=== PATIENT | male | born 2000 | race Caucasian/White ===

== ENCOUNTER 2020-07-17 22:47 | Emergency (ER) | payer BC ==
[~2020-07-17] VITALS: Ht 177.8 cm; Wt 72.6 kg
[2020-07-17 22:52] VITALS: BP 120/77
--- NOTE | 2020-07-17 22:52 | NUR ---
TO BED AMBULATORY
--- NOTE | 2020-07-17 23:42 | NUR ---
PATIENT LWBS. MONISHA MADE AWARE.
== END 2020-07-17 23:42 | disposition left against medical advice (07) ==
LOC: MED 22:47
DX: S01.81XA Laceration without foreign body of other part of head, initial encounter (principal); Z53.21 Procedure and treatment not carried out due to patient leaving prior to being seen by health care provider; X58.XXXA Exposure to other specified factors, initial encounter; Y93.89 Activity, other specified; Y92.89 Other specified places as the place of occurrence of the external cause; Y99.8 Other external cause status